=== PATIENT | female | born 1960 | race Hispanic/Latino ===

== ENCOUNTER 2016-11-19 23:12 | Inpatient (IN) | payer MEDICAID ==
[2016-11-19 23:20] VITALS: O2SAT 96
--- NOTE | 2016-11-19 23:21 | ED PDOC ---
Psych Transfer Clearance - Clearance Statement Clearance Statement: Reviewed vital signs, lab results and transfer papers. Patient clinically stable for psychiatric admission.
[2016-11-20] MEDS ORDERED: Alum-Mag Hydrox-Simethicone Susp (30 mL) PO PRN (00:43)
[2016-11-20] MEDS ORDERED: Magnesium Hydroxide Susp 30 ml UD PO PRN (00:43)
[2016-11-20] MEDS ORDERED: DiphenhydrAMINE 50 mg/ml Inj IM PRN (00:43)
[2016-11-20] MEDS ORDERED: Albuterol HFA 90 mcg/actuation (8 g) INH PRN (00:52)
[2016-11-20 07:37] LABS: PARTIAL THROMBOPLASTIN TIME 26.6 SECONDS (23.3-32.5)
[2016-11-20 07:51] LABS: T4 6.18 ug/dl (5.5-11.0)
[2016-11-20 08:04] LABS: THYROID STIMULATING HORMONE 3.38 mIU/ML (0.46-4.68)
[2016-11-20] MEDS: Multivitamin With Minerals Tab PO SCH (09:10)
--- NOTE | 2016-11-20 13:49 | CP.PCM.CON ---
History of Present Illness - History of Present Illness History of Present Illness: Hospitalist Consult H&P (Patient was seen and examined at 12:15 PM 11/20/16 318- 1 with Psychiatry Nurse Stanley whitehead) 56 year old female who was admitted to the in-patient Psychiatry Unit at [facility] for treatment of Depression Currently upon FULL ROS there is NO chest pain, NO palpitations, NO SOB/ Wheezing (+) Cough that is chronic in nature and occurs everyday, NO dysphagia/ odynophagia, NO abdominal pain, NO n/v/d/c, NO black/bloody stools, NO lightheadedness/dizziness, NO headaches, NO new changes in vision/eye pain, NO new changes in hearing/ear pain, NO edema, NO paresthesias PMHx: Portal Vein Thrombosis, COPD, NIDDM, Alcohol Abuse, Depression PSHx: Tubal Ligation, Cholecystectomy ALL Sulfa (swelling) Medications: Coumadin 5 mg PO 1x/day (states she is taking everyday), Metformin 500 mg PO 2x/day, Advair (uknown dosage) 2x/day, Please also see list below Social Hx: Lives with and Dad, (+) Tobacco 1 1/2 to 2 packs a day on and off since she was 17 y/o, (+) 1 to 2 liters of Vodka over a couple days for long time now, (+) Crack Cocaine in the past but has not used for years Family Hx: Mom ( of Breast CA), Dad (S/P CABG), 1 Daughter and 2 Sons ( Healthy) Review of Systems - Review of Systems Review of Systems: Please see above Past Patient History - Past Medical History & Family History Pertinent Family History: Please see above - CARDIAC Hx Hypertension: Yes - PULMONARY Hx Asthma: Yes Hx Chronic Obstructive Pulmonary Disease (COPD): Yes - HEENT Other/Comment: did not bring her upper dentures or lower partial plate - RENAL Other/Comment: portal vein thrombosis - ENDOCRINE/METABOLIC Hx Diabetes Mellitus Type 2: Yes - PSYCHIATRIC Hx Bipolar Disorder: Yes - ANESTHESIA Hx Anesthesia: Yes Hx Anesthesia Reactions: No Meds Allergies/Adverse Reactions: Allergies Allergy/AdvReac Type Severity Reaction Status Date / Time Sulfa (Sulfonamide Allergy RASH Verified 11/19/16 23:16 Antibiotics) - Medications Medications: Current Medications Acetaminophen (Tylenol 325mg Tab) 650 mg PO Q4 PRN PRN Reason: pain level 1-7 Al Hydrox/Mg Hydrox/Simethicone (Maalox Plus 30 Ml) 30 ml PO Q4 PRN PRN Reason: Dyspepsia Albuterol (Ventolin Hfa 90 Mcg/Actuation (8 G)) 2 puff INH RQ4 PRN PRN Reason: Shortness of Breath Diphenhydramine HCl (Benadryl) 50 mg PO Q6 PRN PRN Reason: Extrapyramidal Symptoms Diphenhydramine HCl (Benadryl) 50 mg IM Q6 PRN PRN Reason: Extrapyramidal S/S Unable PO Diphenhydramine HCl (Benadryl) 50 mg PO HS PRN PRN Reason: Sleep Folic Acid (Folic Acid) 1 mg PO DAILY [facility] Last Admin: 11/20/16 09:09 Dose: 1 mg Gabapentin (Neurontin) 300 mg PO BID [facility] Last Admin: 11/20/16 09:11 Dose: 300 mg Gabapentin (Neurontin) 600 mg PO HS [facility] Haloperidol (Haldol) 5 mg PO Q4 PRN PRN Reason: Agitation Haloperidol Lactate (Haldol) 5 mg IM Q4 PRN PRN Reason: Agitation, Unable to Take PO Lorazepam (Ativan) 2 mg PO Q4 PRN PRN Reason: Anxiety/Agitation Lorazepam (Ativan) 2 mg IM Q4 PRN PRN Reason: Anxiety/Agitation,Unable PO Lorazepam (Ativan) 1 mg PO TID [facility] Last Admin: 11/20/16 09:09 Dose: 1 mg Magnesium Hydroxide (Milk Of Magnesia) 30 ml PO HS PRN PRN Reason: Constipation Multivitamins/Minerals (Therapeutic-M Tab) 1 tab PO DAILY [facility] Last Admin: 11/20/16 09:10 Dose: 1 tab Nicotine (Nicoderm Cq) 1 patch TD DAILY [facility] Last Admin: 11/20/16 09:07 Dose: 1 patch Sertraline HCl (Zoloft) 100 mg PO DAILY [facility] Last Admin: 11/20/16 09:09 Dose: 100 mg Thiamine HCl (Vitamin B1 Tab) 100 mg PO DAILY [facility] Last Admin: 11/20/16 09:10 Dose: 100 mg Trazodone HCl (Desyrel) 150 mg PO HS [facility] Warfarin Sodium (Coumadin) 5 mg PO QD5 [facility] PRN Reason: Protocol Stop: 11/20/16 17:01 Physical Exam - Constitutional Appears: Non-toxic, No Acute Distress - Head Exam Head Exam: ATRAUMATIC, NORMAL INSPECTION, NORMOCEPHALIC - Eye Exam Eye Exam: EOMI, Normal appearance, PERRL Pupil Exam: NORMAL ACCOMODATION, PERRL - ENT Exam ENT Exam: Mucous Membranes Moist, Normal Exam, Normal External Ear Exam, Normal Oropharynx - Neck Exam Neck exam: Positive for: Normal Inspection Additional comments: NO thyromegaly NO lymphadenopathy - Respiratory Exam Respiratory Exam: Clear to Auscultation Bilateral, NORMAL BREATHING PATTERN Additional comments: NO R/R/W - Cardiovascular Exam Cardiovascular Exam: REGULAR RHYTHM, +S1, +S2 Additional comments: NO M/R/G - GI/Abdominal Exam GI & Abdominal Exam: Normal Bowel Sounds, Soft Additional comments: BS x 4, Soft, NT, Central Obesity (Liver and Spleen could not be palpated), NO guarding/rebound tenderness - Extremities Exam Extremities exam: Positive for: normal inspection Additional comments: NO edema Pulses are strong and equal Capillary Refill is 2 seconds - Neurological Exam Neurological exam: CN II-XII Intact Results - Vital Signs Recent Vital Signs: Last Vital Signs Temp 97.7 F 11/20/16 09:00 Pulse 81 11/20/16 09:00 Resp 18 11/20/16 09:00 BP 111/72 11/20/16 09:00 Pulse Ox 96 11/19/16 23:13 - Labs Labs: Laboratory Results - last 24 hr 11/20/16 07:16 PT 10.6 INR 1.02 APTT 26.6 Triglycerides 221 H Cholesterol 189 LDL Cholesterol Direct 125 HDL Cholesterol 45 Thyroxine (T4) 6.18 TSH 3rd Generation 3.38 Assessment & Plan (1) Depression Assessment and Plan: Treatment as per Psychiatry Status: Acute (2) Alcohol abuse Assessment and Plan: Treatment as per Psychiatry Status: Chronic (3) Portal vein thrombosis Assessment and Plan: Patient states that she is taking Coumadin daily. However INR is 1.02 Considering this patient's history of heavy alcohol use daily, I do not recommend that she be on Coumadin as this can increase bleeding risk and should the patient have trauma while intoxicated, can lead to significant bleeding leading to . Therefore I have discontinued the Coumadin. Patient states that she was being treated for the Portal Vein Thrombosis by Dr. Zelaya" with whom she has not followed up with for some time now. Patient will need to follow up with Hematology upon her discharge for further management of this issue. Again anticoagulation with Coumadin is contraindicated at this time considering patient's Alcohol Abuse for reasons mentioned above. Status: Chronic (4) COPD (chronic obstructive pulmonary disease) Assessment and Plan: Considering her Tobacco history and Chronic Cough this is likely secondary to Chronic Bronchitis Advair 250/50 mcg PO INH 2x/day ordered and patient will need Rx for this upon her discharge Also recommend providing her with information for Smoking Cessation Status: Chronic (5) DM type 2 (diabetes mellitus, type 2) Assessment and Plan: F/U HgBA1C Continue Metformin 500 mg PO 2x/day which she will need Rx for upon her discharge Regular Insulin Sliding Scale ordered Accuchecks AC Meals and QHS Status: Chronic
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
[2016-11-20] MEDS: Fluticasone-Salmeterol 250-50mcg Diskus IH SCH ×2 (14:59→21:10)
--- NOTE | 2016-11-20 15:22 | CP.PCM.CON ---
History of Present Illness - History of Present Illness History of Present Illness: Because of the DM 2 patient needs the followin). JESSICA I such as Lisinopril 5 mg PO 1x/day for Renal Protection 2). Statin such as Atorvastatin 10 mg PO 1x/day for Cardiovascular Protection. If Creatinine and LFTs are ok, then Hospitalist group will add the above medications. If someone from Hospitalist group has not done so by the end of the day on 11/21/16, please page us. Thank you Raphael Watkins D.O. Past Patient History - CARDIAC Hx Hypertension: Yes - PULMONARY Hx Asthma: Yes Hx Chronic Obstructive Pulmonary Disease (COPD): Yes - HEENT Other/Comment: did not bring her upper dentures or lower partial plate - RENAL Other/Comment: portal vein thrombosis - ENDOCRINE/METABOLIC Hx Diabetes Mellitus Type 2: Yes - PSYCHIATRIC Hx Bipolar Disorder: Yes - ANESTHESIA Hx Anesthesia: Yes Hx Anesthesia Reactions: No Meds Allergies/Adverse Reactions: Allergies Allergy/AdvReac Type Severity Reaction Status Date / Time Sulfa (Sulfonamide Allergy RASH Verified 11/19/16 23:16 Antibiotics) - Medications Medications: Current Medications Acetaminophen (Tylenol 325mg Tab) 650 mg PO Q4 PRN PRN Reason: pain level 1-7 Al Hydrox/Mg Hydrox/Simethicone (Maalox Plus 30 Ml) 30 ml PO Q4 PRN PRN Reason: Dyspepsia Albuterol (Ventolin Hfa 90 Mcg/Actuation (8 G)) 2 puff INH RQ4 PRN PRN Reason: Shortness of Breath Diphenhydramine HCl (Benadryl) 50 mg PO Q6 PRN PRN Reason: Extrapyramidal Symptoms Diphenhydramine HCl (Benadryl) 50 mg IM Q6 PRN PRN Reason: Extrapyramidal S/S Unable PO Diphenhydramine HCl (Benadryl) 50 mg PO HS PRN PRN Reason: Sleep Folic Acid (Folic Acid) 1 mg PO DAILY [facility] Last Admin: 11/20/16 09:09 Dose: 1 mg Gabapentin (Neurontin) 300 mg PO BID [facility] Last Admin: 11/20/16 09:11 Dose: 300 mg Gabapentin (Neurontin) 600 mg PO HS [facility] Haloperidol (Haldol) 5 mg PO Q4 PRN PRN Reason: Agitation Haloperidol Lactate (Haldol) 5 mg IM Q4 PRN PRN Reason: Agitation, Unable to Take PO Insulin Human Regular (Humulin R) 0 units SC ACHS [facility] Lorazepam (Ativan) 2 mg PO Q4 PRN PRN Reason: Anxiety/Agitation Lorazepam (Ativan) 2 mg IM Q4 PRN PRN Reason: Anxiety/Agitation,Unable PO Lorazepam (Ativan) 1 mg PO TID [facility] Last Admin: 11/20/16 13:45 Dose: 1 mg Magnesium Hydroxide (Milk Of Magnesia) 30 ml PO HS PRN PRN Reason: Constipation Metformin HCl (Glucophage) 500 mg PO BIDWM [facility] Multivitamins/Minerals (Therapeutic-M Tab) 1 tab PO DAILY [facility] Last Admin: 11/20/16 09:10 Dose: 1 tab Nicotine (Nicoderm Cq) 1 patch TD DAILY [facility] Last Admin: 11/20/16 09:07 Dose: 1 patch Fluticasone/Salmeterol (Advair Diskus 250/50) 1 puff IH Q12 [facility] Last Admin: 11/20/16 14:59 Dose: 1 puff Sertraline HCl (Zoloft) 100 mg PO DAILY [facility] Last Admin: 11/20/16 09:09 Dose: 100 mg Thiamine HCl (Vitamin B1 Tab) 100 mg PO DAILY [facility] Last Admin: 11/20/16 09:10 Dose: 100 mg Trazodone HCl (Desyrel) 150 mg PO [facility] Results - Vital Signs Recent Vital Signs: Last Vital Signs Temp 97.7 F 11/20/16 09:00 Pulse 81 11/20/16 09:00 Resp 18 11/20/16 09:00 BP 111/72 11/20/16 09:00 Pulse Ox 96 11/19/16 23:13 - Labs Labs: Laboratory Results - last 24 hr 11/20/16 07:16 PT 10.6 INR 1.02 APTT 26.6 Triglycerides 221 H Cholesterol 189 LDL Cholesterol Direct 125 HDL Cholesterol 45 Thyroxine (T4) 6.18 TSH 3rd Generation 3.38 Assessment & Plan (1) Depression Status: Acute (2) Alcohol abuse Status: Chronic (3) Portal vein thrombosis Status: Chronic (4) COPD (chronic obstructive pulmonary disease) Status: Chronic (5) DM type 2 (diabetes mellitus, type 2) Status: Chronic
[2016-11-20] MEDS: Insulin Regular 100 units/ml SC SCH ×2 (18:11→21:12)
[2016-11-20 18:23] VITALS: RESP 20
[2016-11-21] MEDS: Insulin Regular 100 units/ml SC SCH ×4 (07:06→21:23)
[2016-11-21] MEDS: Fluticasone-Salmeterol 250-50mcg Diskus IH SCH ×2 (08:35→21:05)
[2016-11-21] MEDS: Multivitamin With Minerals Tab PO SCH (08:36)
--- NOTE | 2016-11-21 11:42 | PCM.PYCHPN ---
Psychiatric Progress Note - Psychiatric Progress Note Patient seen today, length of contact: discussed with team Patient Chief Complaint: i feel good Problems Identified/Issues Discussed: pt visible in the milieu. she is denying withdrawal symptoms. she denies medication side effects. remains focused on discharge. Medical Problems: dr rodriguez has stopped anticoagulation secondary to risk outweighing potential benefit Medication Change: No Medical Record Reviewed: Yes Mental Status Examination - Cognitive Function Orientation: Person, Place, Situation, Time Memory: Intact Attention: WNL Concentration: WNL Association: WNL Fund of Knowledge: WN Decription of patient's judgement and insights: fair - Mood Mood: Anxious - Affect Affect: Broad - Formal Thought Process Formal Thought Process: No Impairment Psychotic Thoughts and Behaviors: denies a/v hallucinations - Suicidal Ideation Suicidal Ideation: No - Homicidal Ideation Homicidal Ideation: No Goal/Treatment Plan - Goal/Treatment Plan Need for Continued Stay: Remain at risks for inpatient hospitalization, Discharge may exacerbated symptoms Progress Toward Problem(s) and Goals/Treatment Plan: alcohol use disorder ptsd major depression will continue current treatment disposition planning
--- NOTE | 2016-11-21 11:45 | RAD ---
HISTORY: History of COPD, Chronic Cough COMPARISON: No prior. TECHNIQUE: Chest PA and lateral FINDINGS: LUNGS: The lungs are clear. PLEURA: No significant pleural effusion identified. No pneumothorax apparent. CARDIOVASCULAR: Normal. OSSEOUS STRUCTURES: No significant abnormalities. VISUALIZED UPPER ABDOMEN: Normal. OTHER FINDINGS: None. IMPRESSION: No active pulmonary disease.
[2016-11-21 12:03] LABS: BASO # 0.1 K/uL (0.0-0.2); EOS # 0.1 K/uL (0.0-0.7); EOS % 1.7 % (0.0-4.0); HEMATOCRIT 38.8 % (34.0-47.0); LYMPH # 1.1 K/uL (1.0-4.3); LYMPH % 13.1 % (20.0-40.0); MEAN CELL VOLUME 80.1 fl (81.0-99.0); MEAN CORPUSCULAR HEMOGLOBIN 26.3 pg (27.0-31.0); MEAN CORPUSCULAR HGB CONC 32.8 g/dL (33.0-37.0); MEAN PLATELET VOLUME 8.8 fl (7.2-11.7); MONO # 0.4 K/uL (0.0-0.8); NEUT # 6.7 K/uL (1.8-7.0); NEUT % 79.2 % (50.0-75.0); NRBC % 0.1 % (0.0-0.0); WHITE BLOOD COUNT 8.5 K/uL (4.8-10.8)
[2016-11-21 12:48] LABS: ALB/GLOB RATIO 1.2 (1.0-2.1); ALKALINE PHOSPHATASE 72 U/L (38-126); ALT/SGPT 39 U/L (9-52); AST/SGOT 40 U/L (14-36); BILIRUBIN,TOTAL 0.5 mg/dl (0.2-1.3); BLOOD UREA NITROGEN 12 mg/dl (7-17); CALCIUM 9.5 mg/dL (8.4-10.2); CARBON DIOXIDE 31 mmol/L (22-30); CHLORIDE 101 mmol/L (98-107); GFR AFRICAN-AMERICAN > 60; GLUCOSE,RANDOM 123 mg/dL (65-105); POTASSIUM 4.6 MMOL/L (3.6-5.0); SODIUM 142 mmol/l (132-148); TOTAL PROTEIN 6.9 G/DL (6.3-8.2)
[2016-11-22] MEDS: Insulin Regular 100 units/ml SC SCH ×2 (06:52→14:23)
[2016-11-22] MEDS: Fluticasone-Salmeterol 250-50mcg Diskus IH SCH (09:10)
[2016-11-22] MEDS: Multivitamin With Minerals Tab PO SCH (09:11)
[2016-11-22 09:17] VITALS: BP 149/79; PULSE 93; TEMP 97.7
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
== END 2016-11-22 15:00 | disposition home or self-care (01) | DRG 430 ==
LOC: H.ER 23:12 → H.ERHOLD 23:19 → UNDOADMIN 23:19 → H.PSYCH 23:42 → H.ERHOLD 23:42 → H.PSYCH 23:43
PROVIDERS: ADMIT Psychiatry & Neurology Psychiatry; ATTEND Psychiatry & Neurology Psychiatry
DX: F33.1 Major depressive disorder, recurrent, moderate (principal); I81 Portal vein thrombosis; J44.9 Chronic obstructive pulmonary disease, unspecified; E11.9 Type 2 diabetes mellitus without complications; I10 Essential (primary) hypertension; F14.21 Cocaine dependence, in remission; F10.10 Alcohol abuse, uncomplicated; Z86.59 Personal history of other mental and behavioral disorders; F31.9 Bipolar disorder, unspecified; J45.909 Unspecified asthma, uncomplicated; R45.851 Suicidal ideations; Z79.84 Long term (current) use of oral hypoglycemic drugs; Z79.899 Other long term (current) drug therapy; Z80.3 Family history of malignant neoplasm of breast; Z82.49 Family history of ischemic heart disease and other diseases of the circulatory system; Z88.2 Allergy status to sulfonamides; Z98.51 Tubal ligation status; Z90.49 Acquired absence of other specified parts of digestive tract